=== PATIENT | male | born 1965 ===

== ENCOUNTER 2018-04-18 10:02 | Emergency (ER) | payer OTHER ==
[2018-04-18 10:43] VITALS: BP 129/82; PULSE 80; RESP 18; TEMP 97.4; O2SAT 96
== END 2018-04-18 12:35 | disposition home or self-care (01) | DRG 605 ==
LOC: ED 10:02
DX: S00.411A Abrasion of right ear, initial encounter (principal)
CPT/HCPCS: 99282